=== PATIENT | male | born 1965 | race Asian ===

== ENCOUNTER 2018-11-01 23:52 | Emergency (ER) | payer BC, MEDICAID ==
[~2018-11-01] VITALS: Ht 165.1 cm; Wt 79.4 kg
[2018-11-01 23:58] VITALS: BP 130/86
[2018-11-02] MEDS ORDERED: sulfamethoxazole/trimethoprim DS (800/160mg) tablet PO ONE (02:00)
[2018-11-02] MEDS ORDERED: cephalexin 250mg capsule PO ONE (02:00)
[2018-11-02] MEDS ORDERED: BACDS PO (02:02)
[2018-11-02] MEDS ORDERED: CEPH500C5 PO (02:02)
== END 2018-11-02 02:27 | disposition home or self-care (01) ==
LOC: ER 23:52
DX: L03.115 Cellulitis of right lower limb (principal); I50.9 Heart failure, unspecified; E11.9 Type 2 diabetes mellitus without complications; F17.210 Nicotine dependence, cigarettes, uncomplicated; Z79.899 Other long term (current) drug therapy
CPT/HCPCS: 82948; 99283

== ENCOUNTER 2018-11-08 13:58 | Emergency (ER) | payer BC ==
[~2018-11-08] VITALS: Ht 165.1 cm; Wt 70.3 kg
[~2018-11-08 13:58] MED LIST: BACDS PO; CEPH500C5 PO
[2018-11-08] MEDS ORDERED: mupirocin 2% ointment 22GM TP STA (15:31)
[2018-11-08 16:05] VITALS: BP 121/77
== END 2018-11-08 16:04 | disposition home or self-care (01) ==
LOC: ER 13:58
DX: L27.1 Localized skin eruption due to drugs and medicaments taken internally (principal); T36.8X5A Adverse effect of other systemic antibiotics, initial encounter; L08.9 Local infection of the skin and subcutaneous tissue, unspecified; I50.9 Heart failure, unspecified; E11.9 Type 2 diabetes mellitus without complications; Z79.2 Long term (current) use of antibiotics; Y92.89 Other specified places as the place of occurrence of the external cause
CPT/HCPCS: 99283

== ENCOUNTER 2018-11-10 08:25 | Day surgery (SDC) | payer BC ==
[2018-11-10] MEDS ORDERED: ASPI-1265 PO (09:35)
[2018-11-10] MEDS ORDERED: SPIR25TA5 PO (09:35)
[2018-11-10] MEDS ORDERED: CARV-49 PO (09:35)
[2018-11-10] MEDS ORDERED: LISI-600 PO (09:35)
[2018-11-10] MEDS ORDERED: silver sulfadiazine cream 50gm TP ONE (10:27)
--- NOTE | 2018-11-10 11:00 | NUR ---
Patient ambulated independently from [facility] and was admitted to outpatient wound care for physician visit with Murtaza Carey MD. Wound cleansed. Patient assessed for changes in conditions, medications and medical history. 0925 - blood glucose 179. Patient instructed that elevated blood sugars delay healing of the wound and can cause further complications including but not limited to amputation of toes or feet. 1014 - Dr. Carey at bedside accompanied by RN. Wound assessed, time out performed by MD/RN. Wound debrided as detailed in the physician progress/procedure note. Plan of care discussed with patient. Dressings placed per MD orders. Patient given written instructions for wound care at home per 's request and is scheduled to return in 1 week for reevaluation. Patient instructed on the signs and symptoms of infection and to call the Wound Center if any occur or to go to the ED if we are closed: Increased pain in wound Increase in drainage from the wound Redness in the skin surrounding the wound Bleeding from the wound Temperature of 101 or greater Patient instructed that the weight of their body puts a large amount of pressure on their wounds. This pressure keeps the new tissue from growing and inhibits new blood vessels from forming. Explained that, if they continue to bear weight on a body part that has a wound, the time it takes to heal the wound increases, the wound may get worse or the wound may not heal at all. Patient verbalized understanding of all discharge instructions and plan of care and ambulated independently out to [facility] in stable condition with no sign or symptom of distress at time of discharge.
== END 2018-11-10 10:42 | disposition home or self-care (01) ==
LOC: WOUND CARE 08:25
PROVIDERS: ATTEND Surgery
DX: I83.012 Varicose veins of right lower extremity with ulcer of calf (principal); E11.622 Type 2 diabetes mellitus with other skin ulcer; L97.211 Non-pressure chronic ulcer of right calf limited to breakdown of skin; E11.65 Type 2 diabetes mellitus with hyperglycemia; I87.2 Venous insufficiency (chronic) (peripheral); I50.9 Heart failure, unspecified; F17.210 Nicotine dependence, cigarettes, uncomplicated; Z79.2 Long term (current) use of antibiotics; Z79.899 Other long term (current) drug therapy
CPT/HCPCS: 82948; 97597; A6223; A4663; A6446

== ENCOUNTER 2018-11-17 08:25 | Outpatient (CLI) | payer BC ==
[~2018-11-17 08:25] MED LIST changes: +ASPI-1265 PO; -BACDS PO; +CARV-49 PO; -CEPH500C5 PO; +LISI-600 PO; +SPIR25TA5 PO
--- NOTE | 2018-11-17 15:20 | NUR ---
0900 Patient ambulated safely into [facility]. Patient admitted to outpatient wound care clinic for follow-up visit with physician. Dressing removed, wound cleansed. Patient assessed for changes in conditions, medications and medical history. Patient showed no s/s of distress at time of assessment. 1005 at bedside accompanied by RN. Wounds assessed, as detailed in the physician progress/procedure note. Plan of care discussed with patient. No dressings applied. Patient discharged from wound care Patient instructed on the signs and symptoms of infection and to call the Wound Center if any occur or to go to the ED if we are closed: Increased pain in wound Increase in drainage from the wound Redness in the skin surrounding the wound Bleeding from the wound Temperature of 101 or greater Patient instructed that the weight of their body puts a large amount of pressure on their wounds. This pressure keeps the new tissue from growing and inhibits new blood vessels from forming. Explained that, if they continue to bear weight on a body part that has a wound, the time it takes to heal the wound increases, the wound may get worse or the wound may not heal at all. Patient verbalized understanding of all discharge instructions and plan of care. Patient ambulated independently out to [facility] and is in stable condition with no sign or symptom of distress at time of discharge.
== END 2018-11-17 10:17 | disposition home or self-care (01) ==
LOC: WOUND CARE 08:25 → EDSTATUS 08:30 → WOUND CARE 10:17
PROVIDERS: ATTEND Surgery
DX: I83.012 Varicose veins of right lower extremity with ulcer of calf (principal); E11.622 Type 2 diabetes mellitus with other skin ulcer; L97.218 Non-pressure chronic ulcer of right calf with other specified severity; E11.65 Type 2 diabetes mellitus with hyperglycemia; I87.2 Venous insufficiency (chronic) (peripheral); I50.9 Heart failure, unspecified; F17.210 Nicotine dependence, cigarettes, uncomplicated; Z79.2 Long term (current) use of antibiotics; Z79.899 Other long term (current) drug therapy
CPT/HCPCS: 36416; 82948; G0463; A4663

== ENCOUNTER 2021-05-18 13:49 | Emergency (ER) | payer BC, MEDICAID ==
[~2021-05-18] VITALS: Ht 165.1 cm; Wt 80.2 kg
[~2021-05-18 13:49] MED LIST changes: +LIDOcaine 1% 30ml preserv. free vial ONE; -LISI-600 PO; +LISI20TA28 PO
[2021-05-18 13:58] VITALS: BP 128/87
[2021-05-18] MEDS ORDERED: LIDOcaine 1% 30ml preserv. free vial IJ ONE (22:45)
[2021-05-18] MEDS ORDERED: clindamycin 150mg capsule PO ONE (23:00)
[2021-05-18] MEDS ORDERED: CLIN300C54 PO (23:02)
== END 2021-05-19 02:55 | disposition left against medical advice (07) ==
LOC: ER 13:50
DX: L03.011 Cellulitis of right finger (principal); I50.9 Heart failure, unspecified; E11.9 Type 2 diabetes mellitus without complications; Z72.89 Other problems related to lifestyle; Z88.1 Allergy status to other antibiotic agents; Z88.8 Allergy status to other drugs, medicaments and biological substances; Z79.82 Long term (current) use of aspirin; Z79.2 Long term (current) use of antibiotics; Z79.899 Other long term (current) drug therapy
CPT/HCPCS: 10060; 99283; J3490

== ENCOUNTER 2023-08-21 18:32 | Emergency (ER) | payer MEDICAID ==
[~2023-08-21] VITALS: Ht 165.1 cm; Wt 78.0 kg
[~2023-08-21 18:32] MED LIST changes: -LIDOcaine 1% 30ml preserv. free vial ONE
[2023-08-21 18:46] VITALS: BP 181/92; PULSE 91; RESP 16; TEMP 97.9; O2SAT 100
== END 2023-08-21 19:24 | disposition home or self-care (01) ==
LOC: ER 18:33
DX: S60.221A Contusion of right hand, initial encounter (principal); I50.9 Heart failure, unspecified; E11.9 Type 2 diabetes mellitus without complications; Z72.89 Other problems related to lifestyle; Z88.8 Allergy status to other drugs, medicaments and biological substances; Z79.899 Other long term (current) drug therapy; Z79.2 Long term (current) use of antibiotics; Z88.2 Allergy status to sulfonamides; X58.XXXA Exposure to other specified factors, initial encounter; Y93.89 Activity, other specified; Y92.89 Other specified places as the place of occurrence of the external cause; Y99.8 Other external cause status
CPT/HCPCS: 73130; 99283